=== PATIENT | female | born 1950 | race Caucasian/White ===

== ENCOUNTER 2016-09-20 11:11 | Outpatient (CLI) | payer MEDICARE, OTHER | END 2016-09-20 11:12 | disposition home or self-care (01) | DX: M25.571 Pain in right ankle and joints of right foot (principal) ==

== ENCOUNTER 2018-02-28 12:58 | Outpatient (CLI) | payer MEDICARE, OTHER | END 2018-02-28 12:59 | disposition critical access hospital (66) | LOC: EMS 12:58 | PROVIDERS: ATTEND Surgery | DX: T63.461A Toxic effect of venom of wasps, accidental (unintentional), initial encounter (principal); R21 Rash and other nonspecific skin eruption; M79.89 Other specified soft tissue disorders; Y92.410 Unspecified street and highway as the place of occurrence of the external cause | CPT/HCPCS: A0425; A0427 ==

== ENCOUNTER 2018-02-28 13:26 | Emergency (ER) | payer MEDICARE, OTHER ==
[2018-02-28] MEDS ORDERED: DEXAMETHASONE 10 MG/ML VIAL PO STA (13:30)
--- NOTE | 2018-02-28 13:46 | ED Physician Documentation ---
History of Present Illness - Stated complaint Stated Complaint: ALLERGIC RX - Chief complaint Chief Complaint: Allergic Rx - Additonal information Additional information: hx from pt 67 f hx severe allergy to wasps stung by wasp R wrist present at EMS station has local swelling silver dollar size per EMS, and EMS noted wheezing so given epi and benadryl, and BIBA to ED feels fine now Review of Systems Constitutional: denies: Fever Cardiac: denies: Chest pain / pressure Respiratory: denies: Dyspnea Skin: reports: Rash, Bite / sting Endocrine: denies: Easy bruising / bleeding Immunocompromised: denies: Immunocompromised PD PAST MEDICAL HISTORY - Past Medical History Endocrine/Autoimmune: HyPOthyroidism - Past Surgical History Past Surgical History: Yes HEENT: Tonsil/Adenoidectomy - Present Medications Home Medications: Ambulatory Orders Medication Instructions Recorded Confirmed Thyroid,Pork [Whitman Thyroid] 0 mg PO DAILY 08/02/14 08/02/14 Epinephrine [Epipen 2-Jim] 0.3 mg IJ ONCE PRN #1 unit 02/28/18 Loratadine [Claritin] 10 mg PO QPM #3 tablet 02/28/18 - Allergies Allergies/Adverse Reactions: Allergies Allergy/AdvReac Type Severity Reaction Status Date / Time Penicillins Allergy Respiratory Verified 02/28/18 13:31 venom-honey bee Allergy Respiratory Verified 02/28/18 13:31 [bee venom (honey bee)] Scromboid fish Allergy Unknown Uncoded 08/02/14 14:46 - Social History Does the pt smoke?: No Smoking Status: Never smoker Does the pt drink ETOH?: Yes Does the pt have substance abuse?: Yes PD ED PE NORMAL - Vitals Vital signs reviewed: Yes - General General: Alert and oriented X 3 - Neck Neck: Supple, no meningeal sign - Cardiac Cardiac: RRR - Respiratory Respiratory: No respiratory distress, Clear bilaterally, Other (no wheeze) - Abdomen Abdomen: Soft, Non tender - Derm Derm: Normal color - Extremities Extremities: Other (erythema to R wrists, no stinger retained) - Neuro Neuro: Alert and oriented X 3 Results - Vitals Vitals: Vital Signs - 24 hr 02/28/18 13:28 Temperature 36.4 C L Heart Rate 86 Respiratory 20 Rate Blood Pressure 192/77 H O2 Saturation 99 Oxygen O2 Source Room air PD MEDICAL DECISION MAKING - ED course ED course: added steroids will obs 2 hr s/p epi pt observed, no rebound, dced - Sepsis Event Vital Signs: Vital Signs - 24 hr 02/28/18 13:28 Temperature 36.4 C L Heart Rate 86 Respiratory 20 Rate Blood Pressure 192/77 H O2 Saturation 99 Oxygen O2 Source Room air Departure - Departure Disposition: 01 Home, Self Care Clinical Impression: Wasp sting-induced anaphylaxis Qualifiers: Encounter type: initial encounter Injury intent: accidental or unintentional Qualified Code(s): T63.461A - Toxic effect of venom of wasps, accidental ( unintentional), initial encounter Condition: Good Instructions: ED Bite Sting Insect Gen Allergic React Follow-Up: Omar Chou ARNP [Primary Care Provider] - Prescriptions: Epinephrine [Epipen 2-Jim] 0.3 mg IJ ONCE PRN #1 unit PRN Reason: Anaphylaxis Loratadine [Claritin] 10 mg PO QPM #3 tablet Comments: Carry your epi pen with you during summer months while wasps are present - only use for a severe reaction with facial swelling, wheezing, trouble breathing
[2018-02-28 15:40] VITALS: BP 160/72
== END 2018-02-28 15:41 | disposition home or self-care (01) ==
LOC: EDUNIT# → ED 13:26
DX: T78.2XXA Anaphylactic shock, unspecified, initial encounter (principal); T63.461A Toxic effect of venom of wasps, accidental (unintentional), initial encounter
CPT/HCPCS: 99283

== ENCOUNTER 2018-08-29 13:07 | Outpatient (CLI) | payer MEDICARE, OTHER ==
--- NOTE | 2018-08-29 15:50 | XRAY Report ---
Reason: CERVICALGIA Procedure Date: 08/29/2018 Accession Number: [id number] / [id number] Procedure: XR - Cervical Spine Complete CPT Code: FULL RESULT: EXAM: CERVICAL SPINE RADIOGRAPHY EXAM DATE: 08/29/2018 02:12 PM. CLINICAL HISTORY: CERVICALGIA. COMPARISONS: None. TECHNIQUE: 5 views. FINDINGS: Alignment: Straightening of the normal cervical lordosis may be positional, degenerative, and are related to muscular spasm. Bones: The cervical vertebral bodies and posterior elements are well visualized from the skull base through C7-T1. No fractures or bone lesions. Disks: There is evidence of moderate multilevel cervical disk and mild to moderate facet degeneration, most pronounced at C3-C4 through C6-C7. Facets: As above. There is evidence of at least moderate multifactorial bony neural foraminal stenosis on the right at C3-C4, C4-C5, C5-C6, C6-C7, and on the left at C3-C4, C4-C5, C5-C6, C6-C7. Soft Tissues: No prevertebral soft tissue swelling. The visualized lung apices are clear. IMPRESSION: 1. No acute osseous abnormality. 2. Multilevel cervical degeneration. RADIA
== END 2018-08-29 13:08 | disposition home or self-care (01) ==
LOC: DI 13:07
PROVIDERS: ATTEND Nurse Practitioner Family
DX: M50.31 Other cervical disc degeneration, high cervical region (principal); M48.02 Spinal stenosis, cervical region; M47.9 Spondylosis, unspecified
CPT/HCPCS: 72050

== ENCOUNTER 2020-02-04 10:42 | Outpatient (CLI) | payer MEDICARE, OTHER ==
[2020-02-04 14:54] LABS: HGB - HEMOGLOBIN 12.4 g/dL (12.0-16.0); MEAN CORPUSCULAR HEMOGLOBIN 27.8 pg (27.0-31.0); MEAN CORPUSCULAR HGB CONC 30.9 g/dL (32.0-36.0); MEAN CORPUSCULAR VOLUME 89.9 fL (81.0-99.0); MEAN PLATELET VOLUME 12.2 fL (7.9-10.8); RED BLOOD COUNT 4.46 10^6/uL (4.20-5.40); RED CELL DISTRIBUTION WIDTH 13.2 % (12.0-15.0); WHITE BLOOD COUNT 6.5 x10^3/uL (4.8-10.8)
[2020-02-04 15:15] LABS: ALBUMIN 4.1 g/dL (3.2-5.5); ALBUMIN/GLOBULIN RATIO 1.4 (1.0-2.2); BILIRUBIN,TOTAL 1.2 mg/dL (0.2-1.0); CALCIUM 8.8 mg/dL (8.5-10.3); CREATININE 0.8 mg/dL (0.4-1.0); TOTAL PROTEIN 7.1 g/dL (6.7-8.2)
== END 2020-02-04 10:43 | disposition home or self-care (01) ==
LOC: LAB.S 10:42
PROVIDERS: ATTEND Physician Assistant
DX: R53.83 Other fatigue (principal); N39.0 Urinary tract infection, site not specified
CPT/HCPCS: 36415; 80053; 84443; 85027; 87086; 87181

== ENCOUNTER 2022-01-17 08:00 | Outpatient (CLI) | payer MEDICARE, OTHER ==
--- NOTE | 2022-01-17 17:01 | XRAY Report ---
PROCEDURE: Cervical Spine 4 View INDICATIONS: RADICULAR PAIN TECHNIQUE: 4 view(s) of the cervical spine were acquired. COMPARISON: None. FINDINGS: Bones: No fractures or dislocations to the T1 level. The lateral masses of C1 appear intact on the odontoid view. No suspicious bony lesions. Moderatec-C5, C5-C6, C6-C7 and C7-T1 degenerative disc di sease. Mild C3 on C4 degenerative disease. Mild facet hypertrophy noted throughout the cervical spine . Moderate bilateral C4-C5, C5-C6 and C6-C7 uncovertebral hypertrophy. Soft tissues: No prevertebral soft tissue swelling. IMPRESSION: 1. Multilevel degenerative disc disease. 2. Multilevel facet arthropathy. 3. No fracture. No acute osseous lesion. If there is continued clinical concern for pathology, then M RI should be considered for further evaluation. Reviewed by: Paty Godinez MD, PhD on 01/17/2022 4:59 PM PDT Approved by: Paty Godinez MD, PhD on 01/17/2022 4:59 PM PDT Station ID: [id number]
== END 2022-01-17 23:59 | disposition home or self-care (01) ==
LOC: DI.S 08:00
PROVIDERS: ATTEND Physician Assistant Medical
DX: M47.22 Other spondylosis with radiculopathy, cervical region (principal); M50.11 Cervical disc disorder with radiculopathy, high cervical region; M79.10 Myalgia, unspecified site
CPT/HCPCS: 36415; 80053; 83735

== ENCOUNTER 2022-01-17 08:00 | Outpatient (CLI) | payer MEDICARE, OTHER ==
[2022-01-17 20:24] LABS: ALBUMIN 3.8 g/dL (3.2-5.5); ALBUMIN/GLOBULIN RATIO 1.1 (1.0-2.2); BILIRUBIN,TOTAL 0.9 mg/dL (0.2-1.0); CALCIUM 9.5 mg/dL (8.5-10.3); CREATININE 0.8 mg/dL (0.4-1.0); MAGNESIUM 2.1 mg/dL (1.7-2.8); POTASSIUM 4.4 mmol/L (3.5-5.0); TOTAL PROTEIN 7.2 g/dL (6.7-8.2)
== END 2022-01-17 23:59 | disposition home or self-care (01) ==
LOC: LAB.S 08:00
PROVIDERS: ATTEND Physician Assistant Medical
DX: M79.10 Myalgia, unspecified site (principal)
CPT/HCPCS: 36415; 80053; 83735

== ENCOUNTER 2022-09-07 08:05 | Outpatient (CLI) | payer MEDICARE, OTHER ==
[2022-09-07 14:15] LABS: HCT - HEMATOCRIT 41.6 % (37.0-47.0); HGB - HEMOGLOBIN 12.4 g/dL (12.0-16.0); MEAN CORPUSCULAR HEMOGLOBIN 27.8 pg (27.0-31.0); MEAN CORPUSCULAR HGB CONC 29.8 g/dL (32.0-36.0); MEAN CORPUSCULAR VOLUME 93.3 fL (81.0-99.0); MEAN PLATELET VOLUME 11.9 fL (7.9-10.8); RED BLOOD COUNT 4.46 10^6/uL (4.20-5.40); RED CELL DISTRIBUTION WIDTH 13.6 % (12.0-15.0); WHITE BLOOD COUNT 6.5 x10^3/uL (4.8-10.8)
[2022-09-07 15:54] LABS: THYROID STIMULATING HORMONE 5.22 uIU/mL (0.34-5.60)
[2022-09-07 15:57] LABS: FREE T3 2.6 pg/mL (2.5-3.9)
[2022-09-07 15:58] LABS: FREE T4 (FREE THYROXINE) 0.72 ng/dL (0.58-1.64)
[2022-09-07 20:41] LABS: ESTIMATED AVERAGE GLUCOSE 131 mg/dL (70-100); HEMOGLOBIN A1c% 6.2 % (4.27-6.07)
== END 2022-09-07 08:06 | disposition home or self-care (01) ==
LOC: LAB.S 08:05
PROVIDERS: ATTEND Internal Medicine
DX: E03.9 Hypothyroidism, unspecified (principal); R73.9 Hyperglycemia, unspecified; M35.3 Polymyalgia rheumatica
CPT/HCPCS: 36415; 83036; 84439; 84443; 84481; 85027; 85651; 86140

== ENCOUNTER 2022-11-10 11:51 | Outpatient (CLI) | payer MEDICARE, OTHER ==
[2022-11-10 14:52] LABS: HCT - HEMATOCRIT 39.5 % (37.0-47.0); HGB - HEMOGLOBIN 12.3 g/dL (12.0-16.0); MEAN CORPUSCULAR HEMOGLOBIN 28.8 pg (27.0-31.0); MEAN CORPUSCULAR HGB CONC 31.1 g/dL (32.0-36.0); MEAN CORPUSCULAR VOLUME 92.5 fL (81.0-99.0); MEAN PLATELET VOLUME 11.8 fL (7.9-10.8); RED BLOOD COUNT 4.27 10^6/uL (4.20-5.40); RED CELL DISTRIBUTION WIDTH 13.5 % (12.0-15.0)
== END 2022-11-10 11:52 | disposition home or self-care (01) ==
LOC: LAB.S 11:51
PROVIDERS: ATTEND Internal Medicine
DX: M35.3 Polymyalgia rheumatica (principal)
CPT/HCPCS: 36415; 85027; 86140

== ENCOUNTER 2023-02-14 08:00 | Outpatient (CLI) | payer MEDICARE, OTHER | END 2023-02-14 23:59 | disposition home or self-care (01) | LOC: LAB.S 08:00 | PROVIDERS: ATTEND Internal Medicine | DX: M35.3 Polymyalgia rheumatica (principal); R53.81 Other malaise; R63.5 Abnormal weight gain; Z51.81 Encounter for therapeutic drug level monitoring; M79.10 Myalgia, unspecified site; R53.83 Other fatigue | CPT/HCPCS: 81599; 83586 ==

== ENCOUNTER 2023-05-23 09:22 | Outpatient (CLI) | payer MEDICARE, OTHER ==
--- NOTE | 2023-05-23 10:06 | Sleep Patient Instructions ---
Sleep Center Visit Summary - Patient Visit Information Reason for Visit: Initial consultation - Patient Instructions Instructions Attached: Sleep Study Home Monitor Additional Instructions: You will be completing a sleep study, either an in-lab polysomnography (PSG) or home sleep study (HST). You will follow-up in the sleep care office after the sleep study is completed to hear the results and talk about therapy, if needed. You will be called by our office staff to schedule this appointment, but you may contact us with any questions - Clinic Information Contact: [facility] [address] [place] [email or web address] T: [phone]
--- NOTE | 2023-05-23 10:20 | SLEEP CARE CONSULTATION ---
Information from patient questionnaire entered by Nishant Esets. I have reviewed and concur with the information entered by Nishant Estes. This document represents the service I personally performed and the decisions made by me, Perla Rodriguez ARNP. History of Present Illness Service Date and Time: 05/23/2023921 Reason for Visit: New patient, Previously diagnosed sleep apnea, Other (On oral device) Chief Complaint: reports: Unrefreshed sleep, Fatigue, Frequent awakenings at night Date of Onset: 10 years Usual bedtime: 10 - 10:30 AM Time it takes to fall asleep: Depends - sometimes right away - sometimes a long time Snores at night: Yes Observed to quit breathing while asleep: No Sleeps alone due to snoring: No (N/A) Number of times waking at night: 2 or 3 times Reasons for waking at night: reports: Bathroom. denies: Choking, Gasping for air Toss, Turn, or Twitch while sleeping: Yes Recalls having dreams: Yes (Sometimes) Usually gets out of bed at: 6:30 - or 7 AM Feels refreshed in the morning: No (sometimes) Morning headache: No Sleepy or fatigued during the day: Yes Ever fallen asleep while driving: No Takes day naps: Yes (Sometimes if I've had a sleepless night) Dreams during day naps: Yes (Sometimes) Prior sleep studies: Yes Year and Where: Dr. Luis Felipe Hopkins 2016 Additional HPI information: MARJORIE VEGA was previously diagnosed to have severe positional, AHI 35, obstructive sleep apnea-hypopnea syndrome as seen in a PSG in 04/04/2017 with mild obstructions in non-supine (6 or 12, seen in two night study) and comes in to establish care today for oral appliance with positional therapy. She is here to reverify her diagnosis and severity. not taking steroids and has been sleeping better since on [place] herbs that she started in March. She is getting at least 6 hours of sleep nightly. She will fall asleep within 15-20 minutes. She usually listening to a book to go to sleep. Occasionally, she will not be able to go to sleep. She uses her oral appliance nightly. - Parasomnia Symptoms Ever been unable to move upon waking from sleep: No Walks in sleep: No Talks in sleep: Yes Ever acted out dreams in sleep: No Ever felt weak in the knees when startled or emotional: No Bothered by creepy, crawly, restless sensations in legs: No Problems with memory or concentration: No CPAP Compliance Data Compliance data discussion: She is using an oral appliance on a nightly basis. She says it fits comfortably, no issues. 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 Patient is single and lives in [place]. Have you smoked in the past 12 months: No Cigarettes per day (20/pack): 1 Years of smokin Quit date: 1970 Smoking Pack Years: 0 Alcohol use: No Caffeine use: Yes Caffeine amount and frequency: Black/green tea - 2 cups in the early AM Family History Family history of sleep disordered breathing: Yes Family Hx Sleep Apnea: Sibling: Snoring, Sleep apnea - Treated Allergies and Home Medications Known drug allergies: Yes (Penicillin, Doxycycline, bee stings (yellow jacket)) Drug allergies reviewed: Yes Home medication list reviewed: Yes (as needed) Allergy and home medication list: Allergies Penicillins Allergy Respiratory venom-honey bee [bee venom (honey bee)] Allergy Respiratory Scromboid fish Allergy Unknown Medications: NaturThroid 32.5 (1/2 grain) Naltraxone, low dose, 3 mg daily Review of Systems Weight gain over past 5 years: 40 from steroids Weight loss over past 5 years: 40 Cardiovascular: denies: high blood pressure Gastrointestinal: denies: heartburn Neurological: denies: headaches Psychiatric: denies: anxiety, depression Ear/Nose/Throat: reports: nasal congestion, dry mouth/throat, tonsillectomy, wisdom teeth removed, other (I use a dental device for sleep apnea) Musculoskeletal: reports: muscle pain or cramping (Just pain, no cramping), mobility problems (from PMR), other (Joint stiffness) Immunologic: reports: sneezing (/runny nose), allergies to food or environment (tree pollen) Physical Exam Vital signs obtained and entered by: Perla De Paz NP Blood Pressure: 144/80 Cuff size: regular (right arm) Heart Rate: 66 O2 Saturation: 97 Height: 5 ft 4 in Weight: 300 lb 9.6 oz Body Mass Index: 51.5 BMI Classification: Morbidly Obese Neck circumference: 16 (inches) Mouth and throat: narrow oropharynx Soft palate: long Hard palate: normal Uvula: normal Uvula visualization: 25% Mallampati Class III Tongue: normal in size Tonsils: absent bilaterally Neck: normal w/o lymphadenopathy or thyromegaly Heart: regular rate and rhythm Lungs: clear bilaterally Impression and Plan 1. Obstructive Sleep Apnea-Hypopnea Syndrome, severe positional. Using oral appliance therapy, the patient has better sleep quality and is more rested overall. She has been using the oral appliance with positional therapy since she has mild obstructions when non-supine according to her last sleep study in 2017. Patient has been using his oral appliance since 2017. She states she was on steroids at the time and things have improved since she has gotten off the steroids and started taking some [place] herbs for her PMR. She gained weight with taking the steroids, about 40 pounds. I would like to get a verifying sleep study without her oral appliance in place to see if there are any changes. But I also need a study with her oral appliance in place to see how well it is controlling her sleep apnea. Patient's apnea severity and rationale for treatment to reduce apnea, improve sleep quality and reduce cardiovascular and cerebrovascular events was reviewed. 2. Obesity, unspecified. Currently patients BMI is 51.5. Obesity increases the risk of apnea, CPAP pressure requirements and overall health risks especially cardiovascular and diabetes. Thus patient is advised to lose weight. * Schedule polysomnography/HST to verify diagnosis. * Try to schedule followup HST with oral appliance in place to verify efficacy of treatment * Attempt to lose weight. * Review instructions provided by trained office staff on how to prepare for the sleep study. * Return for follow-up after sleep studies completed. Counseling Topics: Sleeping position, Weight loss health impact Visit Type: In Office Time Spent with Patient (minutes): 48 Provider Statement: I spent 100% of the Face to Face Visit with the patient with greater than 50% spent counseling the patient and coordination of care.
[2023-05-23 10:30] VITALS: BP 144/80; O2SAT 97
== END 2023-05-23 09:23 | disposition home or self-care (01) ==
LOC: SC 09:22
PROVIDERS: ATTEND Nurse Practitioner Family
DX: G47.33 Obstructive sleep apnea (adult) (pediatric) (principal); E66.01 Morbid (severe) obesity due to excess calories; Z68.43 Body mass index [BMI] 50.0-59.9, adult
CPT/HCPCS: 99203; G0463; 99212

== ENCOUNTER 2023-06-08 08:55 | Outpatient (CLI) | payer MEDICARE, OTHER | END 2023-06-08 08:56 | disposition home or self-care (01) | LOC: SC 08:55 | PROVIDERS: ATTEND Nurse Practitioner Family | DX: G47.33 Obstructive sleep apnea (adult) (pediatric) (principal); R09.02 Hypoxemia | CPT/HCPCS: G0399 ×2; 95806 ==

== ENCOUNTER 2023-06-09 08:58 | Outpatient (CLI) | payer MEDICARE, OTHER | END 2023-06-09 08:59 | disposition home or self-care (01) | LOC: SC 08:58 | PROVIDERS: ATTEND Nurse Practitioner Family | DX: G47.33 Obstructive sleep apnea (adult) (pediatric) (principal) | CPT/HCPCS: G0399 ×2; 95806 ==

== ENCOUNTER 2023-06-29 11:32 | Outpatient (CLI) | payer MEDICARE, OTHER ==
--- NOTE | 2023-06-29 10:21 | SLEEP CARE CONSULTATION ---
Information from patient questionnaire entered by Sena Crawford. I have reviewed and concur with the information entered by Sena Crawford. This document represents the service I personally performed and the decisions made by me, Perla Rodriguez ARNP. History of Present Illness Service Date and Time: 06/29/2023 1000 Initial [place] Sleepiness Scale score: 7 (in 2022) Current [place] Sleepiness Scale score: 3 Additional HPI information: MARJORIE VEGA returns via video appointment for follow up and results of the recently performed home sleep studies. The sleep study showed severe obstructive sleep apnea with an average AHI of 38.5 and sylvie oxygen saturation of 66%. Her second sleep study done with oral appliance in place showed moderate obstructive sleep apnea with an average AHI of 21.5 and sylvie oxygen saturation of 69%. It does appear that the oral appliance is only mildly effective. I explained the pathophysiology behind obstructive sleep apnea. We then spent quite a bit of time discussing different treatment options. For mild obstructive sleep apnea, surgery and oral appliance are alternatives to nasal CPAP therapy but in moderate or severe cases, nasal CPAP is the most effective and reliable treatment. After some discussion, the patient opted to go with the nasal CPAP therapy. Nasal autoCPAP set at 4-15 cmH20 will be ordered with rationale explained. A manual titration study will be ordered if unable to find optimal pressure with office adjustments. I explained how CPAP machine works and what to expect when using the machine. Using CPAP every night in order to get used to it was emphasized. Patient advised to put CPAP mask on before getting into bed so as not to fall asleep without CPAP. To assist acclimation to CPAP use, it could also be used for a short time during day while reading or watching TV. The patient was instructed to call the CPAP supplier to discuss any mechanical problem that may occur. If the mask given is uncomfortable or is difficult to keep on through the night even with adjustment, contact the CPAP supplier as many will replace with another mask style if notified before 30 days. If snoring or perceives is not getting enough air or too much air from the machine, notify this office. Patient does not drink alcohol. Patient was cautioned about risks of drowsy driving until sleepiness symptoms resolve. Patient denies drowsy driving. Sleep Study - Results Type of Sleep Study: Home sleep study (COMPLETED 06/09/23) Prior sleep studies: Yes Year and Where: Dr. Luis Felipe Hopkins 2017 Polysomnography/Home Sleep Study results: HST 06-09-23 Physician Impression: The quality of the study is good. The length of the study is adequate (> 240 minutes). Please also see the tabulated and graphic data. 1. Obstructive Sleep Apnea-Hypopnea (ICD-10 G47.33), severe, with an AHI of 38.5 /hr and sylvie SaO2 of 66%. During the study, the patient had 210 apneas (210 obstructive, 0 central, 0 mixed) and 77 hypopneas. The longest episode lasted 97.0 seconds. The respiratory events occurred more frequently during supine sleep (supine AHI was 49.0 and non-supine, 24.01). 2. Hypoxemia (ICD-10 R09.02), moderate, with the lowest oxygen saturation of 66 % and 144.3 minutes with SaO2 under 90%. Baseline oxygen saturation was normal (Average oxygen sat uration was 90%). HST 06-10-23, with oral appliance in place Physician Impression: The quality of the study is good. The length of the study is adequate (> 240 minutes). Please also see the tabulated and graphic data. 1. Obstructive Sleep Apnea-Hypopnea (ICD-10 G47.33), moderate, with an AHI of 21.5/hr and sylvie SaO2 of 69%. During the study, the patient had 122 apneas (122 obstructive, 0 central, 0 mixed) and 41 hypopneas. The longest episode lasted 113.0 seconds. The respiratory events occurred slightly frequently during supine sleep (supine AHI was 23.2 and non-supine, 18.24). 2. Hypoxemia (ICD-10 R09.02), moderate, with the lowest oxygen saturation of 69 % and 46.2 minutes with SaO2 under 90%. Baseline oxygen saturation was normal (Average oxygen saturation was 92%). Allergies and Home Medications Known drug allergies: Yes (as listed) Drug allergies reviewed: Yes Home medication list reviewed: Yes (no changes) Allergy and home medication list: Allergies Penicillins Allergy (Verified 06/28/23 09:22) Respiratory venom-honey bee [bee venom (honey bee)] Allergy (Verified 06/28/23 09:22) Respiratory Scromboid fish Allergy (Uncoded 06/28/23 09:22) Unknown Review of Systems Review of systems same as previous: Yes (no changes) Physical Exam Vital signs obtained and entered by: PERLA MENJIVAR Blood Pressure: 138/69 (per pt) Height: 5 ft 4 in Weight: 290 lb Body Mass Index: 49.8 BMI Classification: Morbidly Obese Impression and Plan 1. Obstructive Sleep Apnea-Hypopnea Syndrome, severe, with lowest oxygen saturation of 66%. Patient completed 2 sleep studies. Her first HST on June 09 showed severe obstructive sleep apnea, AHI 38.5, with moderate hypoxemia. On her second HST on June 10, she wore her oral appliance and it did reduce her obstructions to 21.5, moderate, with moderate hypoxemia. As mentioned above, the patient will be started on nasal autoCPAP therapy with pressure set at 4-15 cmH2 O. Compliance guidelines also reviewed. A copy of compliance guidelines will be given for reference at check out. 2. Hypoxemia, moderate, with a sylvie oxygen saturation of 66% and 144.3 minutes spent under 90%. The baseline oxygen saturation was normal with an average oxygen saturation of 90%. 2. Obesity, unspecified. Currently patients BMI is 49.8. Obesity increases the risk of apnea, CPAP pressure requirements and overall health risks especially cardiovascular and diabetes. Thus patient is advised to lose weight. * Nasal auto CPAP therapy, pressure at 4-15 cmH2O. * Attempt to lose weight. * Avoid alcohol consumption near bedtime. * Avoid supine sleep until using CPAP. * The patient is again cautioned about driving until sleepiness completely resolves. * Return one month after CPAP obtained. I will assess response to therapy and compliance at that time. Counseling Topics: Weight loss health impact Prescriptions: Auto CPAP Visit Type: Telehealth Video Video Type: Doximity Patient Location: Home Location of Provider: Office Patient agrees and consents to this telehealth visit type: Yes Patient agrees to have their insurance billed: Yes Time Spent with Patient (minutes): 21 Provider Statement: I spent 100% of the Telehealth Video Call with the patient with greater than 50% spent counseling the patient and coordination of care.
[2023-06-29 10:47] VITALS: BP 138/69
== END 2023-06-29 11:33 | disposition home or self-care (01) ==
LOC: SC 11:32
PROVIDERS: ATTEND Nurse Practitioner Family
DX: G47.33 Obstructive sleep apnea (adult) (pediatric) (principal); R09.02 Hypoxemia; E66.01 Morbid (severe) obesity due to excess calories; Z68.42 Body mass index [BMI] 45.0-49.9, adult

== ENCOUNTER 2023-09-15 11:06 | Outpatient (CLI) | payer MEDICARE, OTHER ==
--- NOTE | 2023-09-15 09:01 | SLEEP CARE CONSULTATION ---
Information from patient questionnaire entered by Sena Crawford. I have reviewed and concur with the information entered by Sena Crawford. This document represents the service I personally performed and the decisions made by me, Perla Rodriguez ARNP. History of Present Illness Service Date and Time: 09/15/2023 0840 Previous diagnosis: Severe, Obstructive Sleep Apnea-Hypopnea Syndrome AHI: 38.5 (in 06/09/2023) Reason for follow up: first compliance Equipment type: CPAP (RESMED Airsense 10, s/u 06/2023) Equipment obtained from: Other ([facility]; getting supplies) Mask style: Nasal Backup mask available: No (will keep old mask when replaced) Last cushion change: almost 2 months Prior sleep studies: Yes Year and Where: Dr. Luis Felipe Hopkins 2016 Type of Sleep Study: Home sleep study (COMPLETED 06/09/23) HPI additional information: MARJORIE VEGA was diagnosed to have severe, AHI 38.5, obstructive sleep apnea- hypopnea syndrome and returns via video appointment today for CPAP therapy first compliance follow-up. Sleep Study - Results Type of Sleep Study: Home sleep study (COMPLETED 06/09/23) Prior sleep studies: Yes Year and Where: Dr. Luis Felipe Hopkins 2016 CPAP Compliance Data - Data Reviewed with Patient Average duration of nightly device use: 7 HRS 52 MINS Compliance rate %: 93 (07/11/23-08/09/23; 28/30 days used) Current pressure setting (cmH2O): 4-15 (median 8.9, avg 13.6, max 14.6) Average residual AHI: 1.3 Central apnea: 0 Obstructive apnea: 0.6 Hypopnea: 0.6 Average large leak: 0.4 L/min Subjective Patient concerns: reports: nasal congestion (waking her up, has adjusted her humidifier with little improvement). denies: aerophagia, mask discomfort, air blowing in eyes, mask leak noise, condensation in mask/hose, dry mouth, nose, throat, epistaxis Observed to snore while using device: No Current pressure setting perceived as: comfortable On therapy, patient: reports: being more awake and alert during the day, more rested overall, other (not feels like is sleeping well yet; waking up 3 times a night due to congestion in nose). denies: drowsiness while driving Initial [place] Sleepiness Scale score: 7 (in 2022) Current [place] Sleepiness Scale score: 3 (09/15/23) Allergies and Home Medications Known drug allergies: Yes (as listed) Drug allergies reviewed: Yes Home medication list reviewed: Yes (no changes) Allergy and home medication list: Allergies Penicillins Allergy (Verified 09/13/23 11:19) Respiratory venom-honey bee [bee venom (honey bee)] Allergy (Verified 09/13/23 11:19) Respiratory Scromboid fish Allergy (Uncoded 09/13/23 11:19) Unknown Review of Systems Review of systems same as previous: Yes (NO CHANGE) Physical Exam Vital signs obtained and entered by: SENA Jackson MA Height: 5 ft 4.5 in (PER PT) Weight: 290 lb (PER PT) Body Mass Index: 49.0 BMI Classification: Morbidly Obese Impression and Plan 1. Obstructive Sleep Apnea-Hypopnea Syndrome, severe, with good treatment compliance and good apnea control. On CPAP therapy, the patient has better sleep quality and is more rested overall. She has significant improvement of her sleep apnea and is comfortable with the headgear/mask. She has been having issues with nasal congestion waking her up because she cannot breathe through her nose. She has adjusted her humidifier and has gone down thinking more humidity was not helping. I advised her to try to increase her humidity as this can reduce the feeling of nasal congestion due to dryness. She voiced understanding. The patients pressure will be changed to autoCPAP 10-15 cmH20 to reflect pressure being used. Patient advised to contact me if pressure change is uncomfortable so that it can be adjusted. Goals for apnea control discussed. Patient's apnea severity and rationale for treatment to reduce apnea, improve sleep quality and reduce cardiovascular and cerebrovascular events was reviewed. 2. Obesity, unspecified. Currently patients BMI is 49. Obesity increases the risk of apnea, CPAP pressure requirements and overall health risks especially cardiovascular and diabetes. Thus patient is advised to lose weight. * Change auto CPAP pressure to 10-15 cmH2O * Notify me if snoring with mask or feeling that the pressure is too much or too little * Attempt to lose weight * Call this office if any problems using CPAP * Return for follow up in 1-2 months, or sooner if concerns arise Counseling Topics: Spare mask, Weight loss health impact Follow up with Sleep Care in: 1-2 months Visit Type: Telehealth Video Video Type: Doximity Patient Location: Home Location of Provider: Office Patient agrees and consents to this telehealth visit type: Yes Time Spent with Patient (minutes): 25 Provider Statement: I spent 100% of the Telehealth Video Call with the patient with greater than 50% spent counseling the patient and coordination of care.
== END 2023-09-15 11:07 | disposition home or self-care (01) ==
LOC: SC 11:06
PROVIDERS: ATTEND Nurse Practitioner Family
DX: G47.33 Obstructive sleep apnea (adult) (pediatric) (principal); E66.01 Morbid (severe) obesity due to excess calories; Z68.42 Body mass index [BMI] 45.0-49.9, adult

== ENCOUNTER 2023-10-24 09:28 | Outpatient (CLI) | payer MEDICARE, OTHER ==
[2023-10-24 14:58] LABS: BASOPHILS % (AUTO) 0.6 %; EOSINOPHILS # (AUTO) 0.3 10^3/uL (0.0-0.7); EOSINOPHILS % (AUTO) 4.3 %; HCT - HEMATOCRIT 36.7 % (37.0-47.0); HGB - HEMOGLOBIN 11.1 g/dL (12.0-16.0); LYMPHOCYTES # (AUTO) 1.9 10^3/uL (1.5-3.5); LYMPHOCYTES % (AUTO) 27.8 %; MEAN CORPUSCULAR HEMOGLOBIN 28.2 pg (27.0-31.0); MEAN CORPUSCULAR HGB CONC 30.2 g/dL (32.0-36.0); MEAN CORPUSCULAR VOLUME 93.4 fL (81.0-99.0); MONOCYTES # (AUTO) 0.5 10^3/uL (0.0-1.0); MONOCYTES % (AUTO) 7.8 %; NEUTROPHILS # (AUTO) 4.1 10^3/uL (1.5-6.6); NEUTROPHILS % (AUTO) 59.2 %; PLT - PLATELET COUNT 217 10^3/uL (130-450); RED BLOOD COUNT 3.93 10^6/uL (4.20-5.40); RED CELL DISTRIBUTION WIDTH 13.8 % (12.0-15.0); WHITE BLOOD COUNT 6.9 x10^3/uL (4.8-10.8)
[2023-10-24 15:35] LABS: ALBUMIN 3.9 g/dL (3.2-5.5); ALBUMIN/GLOBULIN RATIO 1.4 (1.0-2.2); BILIRUBIN,TOTAL 0.9 mg/dL (0.2-1.0); CALCIUM 9.6 mg/dL (8.5-10.3); CREATININE 0.8 mg/dL (0.6-1.3); MAGNESIUM 1.8 mg/dL (1.7-2.3); POTASSIUM 4.3 mmol/L (3.5-4.5); TOTAL PROTEIN 6.7 g/dL (6.4-8.9)
== END 2023-10-24 09:29 | disposition home or self-care (01) ==
LOC: LAB.S 09:28
PROVIDERS: ATTEND Emergency Medicine
DX: R60.9 Edema, unspecified (principal)
CPT/HCPCS: 36415; 80053; 83735; 83880; 85025

== ENCOUNTER 2024-01-08 08:00 | Outpatient (CLI) | payer MEDICARE, OTHER ==
--- NOTE | 2024-01-09 20:30 | XRAY Report ---
PROCEDURE: Ankle 3+V LT INDICATIONS: PAIN IN LEFT ANKLE TECHNIQUE: 4 views of the ankle were acquired. COMPARISON: None. FINDINGS: Bones: No fractures or dislocations. Mild to moderate midfoot or hindfoot joint osteophytic changes are seen. Well-defined plantar calcaneal enthesophyte is noted. Ankle mortise is normally aligned. N o suspicious bony lesions. Soft tissues: Soft tissue swelling around ankle joint is seen. No tibiotalar joint effusion. Achill es tendon appears normal. IMPRESSION: Diffuse ankle soft tissue swelling. No evidence of fracture or dislocation. Well-defined plantar calc aneal enthesophyte. [id number] midfoot or hindfoot joint osteoarthritis. Reviewed by: Remi Lema MD on 01/09/2024 8:29 PM PDT Approved by: Remi Lema MD on 01/09/2024 8:29 PM PDT Station ID: [id number]
== END 2024-01-08 23:59 | disposition home or self-care (01) ==
LOC: DI.S 08:00
PROVIDERS: ATTEND Emergency Medicine
DX: M19.072 Primary osteoarthritis, left ankle and foot (principal); R22.42 Localized swelling, mass and lump, left lower limb

== ENCOUNTER 2024-03-29 11:33 | Outpatient (CLI) | payer MEDICARE, OTHER ==
--- NOTE | 2024-03-29 12:32 | XRAY Report ---
PROCEDURE: Ankle 3+V BL INDICATIONS: BILATERAL ANKLE PAIN TECHNIQUE: 3 views of both ankles COMPARISON: Prior examination 01/09/2024 and 09/20/2016 reviewed.. FINDINGS: There is marked duct has planus deformity involving both feet. There is no evidence for acute fracture or dislocation. There appears to be some khta-jy-[id number] degenerative change involving the midfoot on the right. Bilateral calcaneal heel spurs are noted. IMPRESSION: 1. Marked pes planus deformity bilaterally. 2. No evidence for acute osseous abnormality involving either the right or left ankles. 3. Calcaneal heel surgery spurs bilaterally. 4. Mild to moderate osteoarthritic type degenerative change right mid foot. Reviewed by: Manas Ji MD on 03/29/2024 12:31 PM PDT Approved by: Manas Ji MD on 03/29/2024 12:31 PM PDT Station ID: [id number]
[2024-03-29 20:45] LABS: RHEUMATOID FACTOR NEGATIVE (Negative)
== END 2024-03-29 11:34 | disposition home or self-care (01) ==
LOC: DI.S 11:33
PROVIDERS: ATTEND Physician Assistant Surgical
DX: M77.32 Calcaneal spur, left foot (principal); M77.31 Calcaneal spur, right foot; M19.071 Primary osteoarthritis, right ankle and foot; M21.42 Flat foot [pes planus] (acquired), left foot; M21.41 Flat foot [pes planus] (acquired), right foot; M77.9 Enthesopathy, unspecified; M48.02 Spinal stenosis, cervical region; M75.100 Unspecified rotator cuff tear or rupture of unspecified shoulder, not specified as traumatic; M35.3 Polymyalgia rheumatica; M79.10 Myalgia, unspecified site; R53.83 Other fatigue
CPT/HCPCS: 36415; 81374; 84550; 86200; 86430

== ENCOUNTER 2024-04-25 13:16 | Outpatient (CLI) | payer MEDICARE, OTHER ==
[2024-04-25] MEDS ORDERED: iohexoL-240 10 ML VIAL IVP ONE (13:19)
[2024-04-25] MEDS ORDERED: TRIAMCINOLONE 40 MG/ML VIAL ONE (13:19)
[2024-04-25] MEDS ORDERED: LIDOCAINE-MPF 1% 5 ML VIAL ONE (13:19)
[2024-04-25] MEDS ORDERED: BUPIVACAINE 0.5% PF 10 ML VIAL ONE (13:19)
[2024-04-25] MEDS: LIDOCAINE-MPF 1% 5 ML VIAL TD ONE (14:14)
[2024-04-25] MEDS: BUPIVACAINE 0.5% PF 10 ML VIAL IM ONE (14:16)
[2024-04-25] MEDS: iohexoL-240 10 ML VIAL IVP ONE (14:17)
[2024-04-25] MEDS: TRIAMCINOLONE 40 MG/ML VIAL IM ONE (14:21)
--- NOTE | 2024-04-25 23:07 | XRAY Report ---
PROCEDURE: Inj/Aspiration Major Joint INDICATIONS: LEFT SHOULDER ADHESIVE CAPSULITIS FLUORO TIME: 000.3 TECHNIQUE: The indications, alternatives, benefits, risks, and complications of the procedure were explained to the patient. Written informed consent was obtained and placed in the chart. The patient was placed in an appropriate position on the fluoroscopy table, and a site was chosen for percutaneous access un deja fluoroscopic guidance. Local anesthetic was administered using a 1% lidocaine solution. A hypod ermic or spinal needle was then used to access the symptomatic joint. Intra-articular location of th e needle tip was confirmed by injecting a small amount of contrast, followed by steroid administratio n. The needle was then withdrawn, and a bandage applied to the puncture site. FINDINGS: Joint injected: Right glenohumeral joint Medications injected: 5 mL of 40 mg/mL Kenalog and 0.5% Ropivacaine mixture. Complications: None. IMPRESSION: Successful fluoroscopically guided administration of steroid and anaesthetic solution into the right glenohumeral joint. Reviewed by: Remi Olvera MD on 04/25/2024 11:06 PM PDT Approved by: Remi Olvera MD on 04/25/2024 11:06 PM PDT Station ID: [id number]
== END 2024-04-25 13:17 | disposition home or self-care (01) ==
LOC: DI 13:16
PROVIDERS: ATTEND Physician Assistant Surgical
DX: M75.02 Adhesive capsulitis of left shoulder (principal)
CPT/HCPCS: 20610; 77002; Q9966